=== PATIENT | female | born 1935 | race Caucasian/White ===

== ENCOUNTER → 2016-11-02 | Outpatient (CLI) | payer MEDICARE, OTHER ==
[~2016-11-02] MED LIST: AMLO2.5T PO; ATOR20TA9 PO; CARV6.252 PO; CHOL100018 PO; CYAN1TAB18 PO; DOXY100T PO; L. R1CAP PO; LEVO175T5 PO; LOSA1TAB18 PO; MELA5TAB PO; OMEP40CA6 PO; QUIN324C3 OP; SPIR50TA2 PO; TRAV5DRO EACHEYE; TRET45GE TP; UBID100C24 PO; VIT1CAPS42 PO
== END | disposition home or self-care (01) ==
LOC: CFH 11:08
PROVIDERS: ATTEND Family Medicine
DX: Z12.31 Encounter for screening mammogram for malignant neoplasm of breast (principal); Z85.3 Personal history of malignant neoplasm of breast
CPT/HCPCS: 77063; G0202

== ENCOUNTER → 2016-12-11 | Outpatient (CLI) | payer MEDICARE, OTHER | END | disposition home or self-care (01) | LOC: CFH 15:30 | PROVIDERS: ATTEND Physical Medicine & Rehabilitation | DX: M51.36 Other intervertebral disc degeneration, lumbar region (principal); M47.896 Other spondylosis, lumbar region; M48.06 Spinal stenosis, lumbar region; M71.38 Other bursal cyst, other site; M51.06 Intervertebral disc disorders with myelopathy, lumbar region; M48.8X6 Other specified spondylopathies, lumbar region | CPT/HCPCS: 72148 ==

== ENCOUNTER → 2017-05-06 | Outpatient (CLI) | payer MEDICARE, OTHER ==
[~2017-05-06] MED LIST changes: +CHOL100012 PO; -CHOL100018 PO; -L. R1CAP PO; +LACT1CAP61 PO; -MELA5TAB PO; +MELA5TAB19 PO
== END | disposition home or self-care (01) ==
LOC: CFH 12:35
PROVIDERS: ATTEND Internal Medicine Pulmonary Disease
DX: C34.11 Malignant neoplasm of upper lobe, right bronchus or lung (principal); K44.9 Diaphragmatic hernia without obstruction or gangrene
CPT/HCPCS: 71250

== ENCOUNTER → 2017-11-03 | Outpatient (CLI) | payer MEDICARE, OTHER ==
[~2017-11-03] MED LIST changes: -LOSA1TAB18 PO; +LOSA1TAB25 PO
== END ==
LOC: CFH 10:00
PROVIDERS: ATTEND Internal Medicine Pulmonary Disease
DX: J98.4 Other disorders of lung (principal); K44.9 Diaphragmatic hernia without obstruction or gangrene; C34.11 Malignant neoplasm of upper lobe, right bronchus or lung
CPT/HCPCS: 71250

== ENCOUNTER → 2017-11-10 | Outpatient (CLI) | payer MEDICARE, OTHER | END | disposition home or self-care (01) | LOC: CFH 10:23 | PROVIDERS: ATTEND Family Medicine | DX: Z12.31 Encounter for screening mammogram for malignant neoplasm of breast (principal) | CPT/HCPCS: 77063; 77067 ==

== ENCOUNTER → 2018-01-12 | Outpatient (CLI) | payer MEDICARE ==
[~2018-01-12] MED LIST changes: +REGADENOSON 0.4 MG/5 ML SYRINGE ONE
== END ==
LOC: CFH 07:24
PROVIDERS: ATTEND Internal Medicine Interventional Cardiology
DX: I10 Essential (primary) hypertension (principal); I35.1 Nonrheumatic aortic (valve) insufficiency
CPT/HCPCS: 78452; 93017; A9502; J2785

== ENCOUNTER 2018-03-08 08:53 | Day surgery (SDC) | payer MEDICARE ==
[~2018-03-08] VITALS: Ht 160 cm; Wt 53.1 kg
[~2018-03-08 08:53] MED LIST changes: +FLUT9.9S NS; +MAGN250T8 PO; +MELA1TAB PO; -REGADENOSON 0.4 MG/5 ML SYRINGE ONE
[2018-03-08] MEDS ORDERED: LACTATED RINGERS 1,000 ML IV SCH (09:31)
[2018-03-08 09:44] VITALS: BP 167/92
[2018-03-08] MEDS ORDERED: PROPOFOL 10 MG/ML, 20ML ONE ×3 (10:22→10:47)
== END 2018-03-08 12:30 ==
LOC: OUT 08:53
PROVIDERS: ATTEND Internal Medicine
DX: D12.2 Benign neoplasm of ascending colon (principal); D12.8 Benign neoplasm of rectum; K29.50 Unspecified chronic gastritis without bleeding; K57.30 Diverticulosis of large intestine without perforation or abscess without bleeding; K44.9 Diaphragmatic hernia without obstruction or gangrene; Z85.3 Personal history of malignant neoplasm of breast; Z85.118 Personal history of other malignant neoplasm of bronchus and lung; Z98.890 Other specified postprocedural states; Z90.49 Acquired absence of other specified parts of digestive tract; Z72.89 Other problems related to lifestyle; Z79.82 Long term (current) use of aspirin; Z86.010 Personal history of colon polyps
CPT/HCPCS: 43239; 45380; 82962; 88305; 93005; J2704; J7120

== ENCOUNTER → 2018-11-08 | Outpatient (CLI) | payer MEDICARE ==
[~2018-11-08] MED LIST changes: -AMLO2.5T PO; +AMLO2.5T5 PO; +ATOR20TA37 PO; -ATOR20TA9 PO; -SPIR50TA2 PO; +SPIR50TA4 PO
== END | disposition home or self-care (01) ==
LOC: CFH 13:04
PROVIDERS: ATTEND Nurse Practitioner
DX: C34.11 Malignant neoplasm of upper lobe, right bronchus or lung (principal); I25.10 Atherosclerotic heart disease of native coronary artery without angina pectoris; I05.9 Rheumatic mitral valve disease, unspecified; K44.9 Diaphragmatic hernia without obstruction or gangrene; M85.89 Other specified disorders of bone density and structure, multiple sites; J84.10 Pulmonary fibrosis, unspecified; K76.89 Other specified diseases of liver; N28.1 Cyst of kidney, acquired; E11.9 Type 2 diabetes mellitus without complications; Z87.891 Personal history of nicotine dependence; Z88.2 Allergy status to sulfonamides; Z88.0 Allergy status to penicillin; Z88.8 Allergy status to other drugs, medicaments and biological substances
CPT/HCPCS: 71250

== ENCOUNTER → 2018-11-14 | Outpatient (CLI) | payer MEDICARE | END | disposition home or self-care (01) | LOC: CFH 11:32 | PROVIDERS: ATTEND Family Medicine | DX: Z12.31 Encounter for screening mammogram for malignant neoplasm of breast (principal); Z85.3 Personal history of malignant neoplasm of breast; Z87.891 Personal history of nicotine dependence | CPT/HCPCS: 77063; 77067 ==

== ENCOUNTER → 2019-10-18 | Outpatient (CLI) | payer MEDICARE ==
[~2019-10-18] MED LIST changes: +MELA5TAB14 PO; -MELA5TAB19 PO; +OMEP40CA42 PO; -OMEP40CA6 PO
== END | disposition home or self-care (01) ==
LOC: CFH 10:27
PROVIDERS: ATTEND Nurse Practitioner
DX: Z08 Encounter for follow-up examination after completed treatment for malignant neoplasm (principal); K44.9 Diaphragmatic hernia without obstruction or gangrene; I70.0 Atherosclerosis of aorta; C34.91 Malignant neoplasm of unspecified part of right bronchus or lung; I25.10 Atherosclerotic heart disease of native coronary artery without angina pectoris; J98.4 Other disorders of lung; J84.10 Pulmonary fibrosis, unspecified; K76.89 Other specified diseases of liver; N28.1 Cyst of kidney, acquired; Z98.890 Other specified postprocedural states
CPT/HCPCS: 71250

== ENCOUNTER 2020-01-10 14:11 | Outpatient (CLI) | payer MEDICARE | END 2020-01-10 23:59 | disposition home or self-care (01) | LOC: CFH 14:11 | PROVIDERS: ATTEND Family Medicine | DX: Z12.31 Encounter for screening mammogram for malignant neoplasm of breast (principal) | CPT/HCPCS: 77063; 77067 ==

== ENCOUNTER → 2020-01-29 | Outpatient (CLI) | payer MEDICARE | END | disposition home or self-care (01) | LOC: CFH 10:06 | PROVIDERS: ATTEND Family Medicine | DX: N63.24 Unspecified lump in the left breast, lower inner quadrant (principal) | CPT/HCPCS: 76642; 77065 ==

== ENCOUNTER 2020-02-01 08:23 | Outpatient (CLI) | payer MEDICARE ==
[2020-02-01] MEDS ORDERED: SODIUM BICARBONATE 4.2%, 5ML ONE (09:59)
[2020-02-01] MEDS ORDERED: LIDOCAINE 1%-EPI 1:100K, 20ML ONE (09:59)
[2020-02-01] MEDS ORDERED: LIDOCAINE 1%, 20ML ONE (09:59)
== END 2020-02-01 23:59 | disposition home or self-care (01) ==
LOC: CFH 08:23
PROVIDERS: ATTEND Family Medicine
DX: N63.23 Unspecified lump in the left breast, lower outer quadrant (principal); C50.512 Malignant neoplasm of lower-outer quadrant of left female breast; Z17.0 Estrogen receptor positive status [ER+]; Z85.3 Personal history of malignant neoplasm of breast
CPT/HCPCS: 19083; 77065; 88305; 88342; 88360; J3490; 19285

== ENCOUNTER → 2020-02-22 | Outpatient (CLI) | payer MEDICARE ==
[2020-02-22 15:15] LABS: BASOPHILS # (AUTO) 0.01 x10^3/uL (0-0.1); BASOPHILS % (AUTO) 0 % (0-1); EOSINOPHILS # (AUTO) 0.31 x10^3/uL (0-0.4); EOSINOPHILS % (AUTO) 5 % (1-7); LYMPHOCYTES # (AUTO) 1.23 x10^3/uL (1-3.4); LYMPHOCYTES % (AUTO) 18 % (22-44); MD NO; MEAN CORPUSCULAR HEMOGLOBIN 32.3 pg (27.0-34.8); MEAN CORPUSCULAR HGB CONC 33.4 g/dL (32.4-35.8); MEAN PLATELET VOLUME 8.1 fL (7.4-10.4); MONOCYTES # (AUTO) 0.76 x10^3/uL (0.2-0.8); MONOCYTES % (AUTO) 11 % (2-9); NEUTROPHILS # (AUTO) 4.45 x10^3/uL (1.8-6.8); NEUTROPHILS % (AUTO) 66 % (42-75); PLATELET COUNT 210 x10^3/uL (130-400); RED CELL DISTRIBUTION WIDTH 13.9 % (9.6-15.2)
[2020-02-22 15:26] LABS: ALANINE AMINOTRANSFERASE 41 U/L (12-78); ALBUMIN 4.1 g/dL (3.4-5.0); ANION GAP 5 mmol/L (5-15); CALCIUM 9.5 mg/dL (8.5-10.1); CHLORIDE 101 mmol/L (98-107); CREATININE 0.96 mg/dL (0.55-1.02)
[2020-02-22 15:28] LABS: ALKALINE PHOSPHATASE 73 U/L (45-117); BILIRUBIN,TOTAL 0.5 mg/dL (0.2-1.0); TOTAL PROTEIN 7.9 g/dL (6.4-8.2)
[2020-02-22 15:43] LABS: INTERNATIONAL NORMALIZED RATIO 0.93 (0.93-1.1); PROTHROMBIN TIME 9.8 Seconds (9.6-11.5)
== END | disposition home or self-care (01) ==
LOC: STAR 13:53
PROVIDERS: ATTEND Surgery
DX: Z01.818 Encounter for other preprocedural examination (principal); I44.0 Atrioventricular block, first degree
CPT/HCPCS: 36415; 80053; 85025; 85610; 85730; 93005

== ENCOUNTER 2020-02-29 08:49 | Day surgery (SDC) | payer MEDICARE ==
[~2020-02-29] VITALS: Ht 160 cm; Wt 55.0 kg
[2020-02-29 09:21] VITALS: BP 125/75
[2020-02-29] MEDS ORDERED: LACTATED RINGERS 1,000 ML IV SCH (09:25)
[2020-02-29] MEDS ORDERED: BUPIVACAINE/PF-EPI 0.5% 1:200K ONE (11:29)
[2020-02-29] MEDS ORDERED: FENTANYL PF 250 MCG/5ML ONE (11:48)
[2020-02-29] MEDS ORDERED: EPHEDRINE 50 MG/ML, 1ML ONE (11:51)
[2020-02-29] MEDS ORDERED: LIDOCAINE PF 2%, 5ML ONE (11:51)
[2020-02-29] MEDS ORDERED: PROMETHAZINE 25 MG SUPP PR PRN (12:30)
[2020-02-29] MEDS ORDERED: PROMETHAZINE 25 MG/ML, 1ML IVPush PRN (12:30)
[2020-02-29] MEDS ORDERED: FENTANYL PF 100 MCG/2ML IV PRN (12:30)
[2020-02-29] MEDS ORDERED: OXYcodone 5 MG/5 ML ORAL.SOL UDC PO PRN (12:30)
[2020-02-29] MEDS ORDERED: ONDANSETRON 2MG/ML, 2ML IVPush PRN (12:30)
[2020-02-29] MEDS ORDERED: ACETAMINOPHEN 325 MG TABLET PO PRN (12:30)
[2020-02-29] MEDS ORDERED: DEXAMETHASONE 4 MG/ML, 1ML ONE (13:04)
[2020-02-29] MEDS ORDERED: PROPOFOL 10 MG/ML, 20ML ONE (13:04)
[2020-02-29] MEDS ORDERED: ONDANSETRON 2MG/ML, 2ML ONE (13:04)
[2020-02-29] MEDS ORDERED: CEFAZOLIN 1,000 MG ONE (13:04)
[2020-02-29] MEDS ORDERED: ACETAMINOPHEN 650 MG/20.3 ML UDC ONE (13:34)
== END 2020-02-29 15:38 | disposition home or self-care (01) ==
LOC: OUT 08:49 → EDSTATUS 12:30 → OUT 15:38
PROVIDERS: ATTEND Surgery
DX: C50.512 Malignant neoplasm of lower-outer quadrant of left female breast (principal); Z11.59 Encounter for screening for other viral diseases; J44.9 Chronic obstructive pulmonary disease, unspecified; I10 Essential (primary) hypertension; E11.9 Type 2 diabetes mellitus without complications; K21.9 Gastro-esophageal reflux disease without esophagitis; E89.0 Postprocedural hypothyroidism; Z17.0 Estrogen receptor positive status [ER+]; Z79.890 Hormone replacement therapy; Z79.899 Other long term (current) drug therapy; Z85.118 Personal history of other malignant neoplasm of bronchus and lung; Z85.3 Personal history of malignant neoplasm of breast; Z87.891 Personal history of nicotine dependence; Z88.0 Allergy status to penicillin; Z88.5 Allergy status to narcotic agent; Z88.8 Allergy status to other drugs, medicaments and biological substances; Z91.040 Latex allergy status; Z90.49 Acquired absence of other specified parts of digestive tract; Z90.710 Acquired absence of both cervix and uterus; Z90.11 Acquired absence of right breast and nipple; Z98.890 Other specified postprocedural states; Z80.0 Family history of malignant neoplasm of digestive organs; Z80.41 Family history of malignant neoplasm of ovary; Z82.49 Family history of ischemic heart disease and other diseases of the circulatory system
CPT/HCPCS: 19301; 36415; 38525; 38792; 76098; 82962; 87635; 88305; 88307; 88341; 88342; A9541; J0690; J1100; J2405; J2704; J3010

== ENCOUNTER → 2020-03-29 | Outpatient (CLI) | payer MEDICARE | END | disposition home or self-care (01) | LOC: ROC 08:16 | PROVIDERS: ATTEND Radiology Radiation Oncology | DX: C34.11 Malignant neoplasm of upper lobe, right bronchus or lung (principal); C50.912 Malignant neoplasm of unspecified site of left female breast | CPT/HCPCS: 99214; G0463 ==

== ENCOUNTER 2020-05-22 08:47 | Outpatient (CLI) | payer MEDICARE | END 2020-05-22 23:59 | disposition home or self-care (01) | LOC: ROC 08:47 | PROVIDERS: ATTEND Radiology Radiation Oncology | DX: C50.512 Malignant neoplasm of lower-outer quadrant of left female breast (principal); J44.9 Chronic obstructive pulmonary disease, unspecified; I10 Essential (primary) hypertension; K21.9 Gastro-esophageal reflux disease without esophagitis; E11.9 Type 2 diabetes mellitus without complications; Z87.891 Personal history of nicotine dependence; Z17.0 Estrogen receptor positive status [ER+]; Z90.710 Acquired absence of both cervix and uterus | CPT/HCPCS: 99212; G0463 ==

== ENCOUNTER → 2020-07-02 | Outpatient (CLI) | payer MEDICARE | END | disposition home or self-care (01) | LOC: CFH 08:54 | PROVIDERS: ATTEND Internal Medicine Hematology & Oncology | DX: C50.812 Malignant neoplasm of overlapping sites of left female breast (principal); M85.88 Other specified disorders of bone density and structure, other site; M85.89 Other specified disorders of bone density and structure, multiple sites | CPT/HCPCS: 77080 ==

== ENCOUNTER 2020-11-19 09:33 | Outpatient (CLI) | payer MEDICARE, OTHER ==
[2020-11-19] MEDS ORDERED: METOPROLOL 1 MG/ML, 5ML ONE (11:13)
[2020-11-19] MEDS ORDERED: VISIPAQUE 320 MG/ML, 150ML BOTTLE ONE (12:02)
== END 2020-11-19 23:59 | disposition home or self-care (01) ==
LOC: CVU 09:33 → RAD 23:59
PROVIDERS: ATTEND Internal Medicine Cardiovascular Disease
DX: Z01.810 Encounter for preprocedural cardiovascular examination (principal); K44.9 Diaphragmatic hernia without obstruction or gangrene; K76.89 Other specified diseases of liver; N28.1 Cyst of kidney, acquired; I70.0 Atherosclerosis of aorta; I25.10 Atherosclerotic heart disease of native coronary artery without angina pectoris; J98.4 Other disorders of lung; I70.8 Atherosclerosis of other arteries; I65.23 Occlusion and stenosis of bilateral carotid arteries; I10 Essential (primary) hypertension; E78.5 Hyperlipidemia, unspecified; Z87.891 Personal history of nicotine dependence
CPT/HCPCS: 71275; 74174; 93880; Q9967

== ENCOUNTER → 2021-01-09 | Outpatient (CLI) | payer MEDICARE, OTHER ==
[~2021-01-09] MED LIST changes: +ACET325T26 PO; +ALEN35TA49 PO; +ANAS1TAB49 PO; +ASPI81TA45 PO; +IRBE1TAB37 PO; +LEVO125T5 PO
== END | disposition home or self-care (01) ==
LOC: CVU 14:37
PROVIDERS: ATTEND Internal Medicine Cardiovascular Disease
DX: Z01.810 Encounter for preprocedural cardiovascular examination (principal); I08.1 Rheumatic disorders of both mitral and tricuspid valves; R06.02 Shortness of breath; I65.29 Occlusion and stenosis of unspecified carotid artery
CPT/HCPCS: 93306

== ENCOUNTER → 2021-01-10 | Outpatient (CLI) | payer MEDICARE, OTHER ==
[~2021-01-10] MED LIST changes: -OMEP40CA42 PO; +OMEP40CA8 PO
== END | disposition home or self-care (01) ==
LOC: CFH 10:36
PROVIDERS: ATTEND Internal Medicine Hematology & Oncology
DX: Z12.31 Encounter for screening mammogram for malignant neoplasm of breast (principal)
CPT/HCPCS: 77063; 77067